=== PATIENT | male | born 1960 | race Caucasian/White ===

== ENCOUNTER 2024-03-05 14:15 | Outpatient (AMB) | payer MEDICARE, SELFPAY ==
--- NOTE | 2024-03-05 14:27 | MHC.OFFVIS ---
Vital Signs 03/05/24 14:30 Height 5 ft 10 in Weight 247 lb BMI 35.4 BP 131/76 Blood Pressure Location Rt brachial Position Sitting Pulse 76 Pulse Source Pulse Oximeter Pulse Oximetry (%) 97 Oxygen Delivery Method Room Air Intake Visit Reasons: Bilateral Hip & Knee Pain Allergies No Known Allergies Allergy (Verified 03/05/24 14:32) Medication List - Last Reconciled 03/05/24 by Trina Mathur amlodipine 5 mg PO DAILY evolocumab (Repatha Pushtronex) mg subcut omeprazole magnesium (Prilosec OTC) 20 mg PO DAILY HPI Comments Details: Mina is a very pleasant 63-year-old male who presents the office today for evaluation management of his chronic left hip and left knee pain. Today he would like to focus on his left knee pain as this has been the most bothersome recently Has been suffering with this pain since he was 15 years old. 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 Occasionally they will cause him to have some aching pain when they swell. Denies radiation of the pain down the extremity. Denies numbness, tingling, weakness. In terms muscle damage condition is described as aching, dull, throbbing, tingling, pins and needles Pain is negatively impacting patient's enjoyment of life, general activity, mood, normal work, recreational activities, sleep, walking Patient denies current use of anticoagulants Denies current use of nicotine, tobacco, alcohol or illicit substances Denies implantable devices, pacemaker or defibrillator [facility] Medical History (Updated 03/05/24 @ 16:28 by Mitali Bates APRN, RITO) High blood pressure High cholesterol GERD (gastroesophageal reflux disease) Surgical History (Updated 03/05/24 @ 16:19 by Mitali Bates APRN, RITO) Status post right knee replacement History of right hip replacement Review of Systems Const All systems reviewed & are unremarkable except as noted in HPI and below Physical Exam Vital Signs: Last Vital Signs Pulse 76 03/05/24 14:30 BP 131/76 03/05/24 14:30 Pulse Ox 97 03/05/24 14:30 Oxygen Delivery Method Room Air 03/05/24 14:30 BMI result Body Mass Index 35.4 General: awake, alert, oriented. Answers questions appropriately. Fully engaged in examination. Skin: warm, dry, intact HEENT: Normocephalic. Hearing intact. Cardiac: External chest normal in appearance. Respiratory: No cough, audible wheezing or stridor. Abdomen: without gross distension. MS: No obvious swelling or deformities. Able to stand on bilateral tiptoes and bilateral heels.? Able to transition from sit to stand unassisted. Ambulates with bilaterally normal heel strike and toe off Pain with internal/external rotation of the left hip Left knee: Tenderness to palpation just distal to the patella. Full range of motion Neurological: Oriented to person, place, time and situation. Thought process intact. No gait abnormalities appreciated. Psychiatric: Appropriate mood and affect. Good judgment and insight. Results Reviewed Results Reviewed: Recent left knee x-ray: mild OA Assessment & Plan Assessment & Plan (1) Osteoarthritis: Code(s): M19.90 - Unspecified osteoarthritis, unspecified site Category: Medical (2) Bilateral hip pain: Code(s): M25.551 - Pain in right hip; M25.552 - Pain in left hip Category: Medical (3) Right knee pain: Code(s): M25.561 - Pain in right knee Category: Medical (4) Left knee pain: Code(s): M25.562 - Pain in left knee Category: Medical (5) Varicose veins of both lower extremities: Code(s): I83.93 - Asymptomatic varicose veins of bilateral lower extremities Category: Medical Plan Mina is a very pleasant 63-year-old presented the office today for evaluation management of his left hip and knee pain Requesting to focus on left knee pain today Patient has exhausted conservative therapy including PT, home exercise program, nonsteroidal anti-inflammatory medications, rest ice, elevate Discussed options for treatment including diagnostic interventional testing, epidural steroid injections, peripheral nerve stimulation with Sprint, RFA and more permanent neuromodulation. Methocarbamol 500 mg p.o. t.i.d., patient advised on cautions for use Amitriptyline 10 mg daily at bedtime, after one-week may increase to 20 mg daily at bedtime. Referral was placed to vascular surgery to evaluate and manage his bilateral lower extremity varicose veins All questions and concerns have been answered and patient agrees with the plan. Follow up after injections, sooner if needed. Orders: Referrals Vascular Surgery Referral I83.93 - Asymptomatic varicose veins of bilateral lower extremities Medications: New methocarbamol No driving while taking this medication. 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
[2024-03-05 14:30] VITALS: BP 131/76; PULSE 76; O2SAT 97; BMI 35.4
== END 2024-03-05 15:23 | disposition home or self-care (01) ==
PROVIDERS: PCP Internal Medicine; Visit Provider Registered Nurse Emergency
DX: M19.90 Unspecified osteoarthritis, unspecified site (principal); M25.551 Pain in right hip; M25.552 Pain in left hip; M25.561 Pain in right knee; M25.562 Pain in left knee; I83.93 Asymptomatic varicose veins of bilateral lower extremities
CPT/HCPCS: 99204; G2211

== ENCOUNTER → 2024-03-05 14:15 | Outpatient (BNVA) | payer MEDICARE, SELFPAY | PROVIDERS: PCP Internal Medicine; Visit Provider Registered Nurse Emergency | DX: M19.90 Unspecified osteoarthritis, unspecified site (principal); M25.551 Pain in right hip; M25.552 Pain in left hip; M25.561 Pain in right knee; M25.562 Pain in left knee; I83.93 Asymptomatic varicose veins of bilateral lower extremities | CPT/HCPCS: 99202 ==

== ENCOUNTER 2024-04-25 09:14 | Outpatient (AMB) | payer MEDICARE, SELFPAY ==
[2024-04-25 09:17] VITALS: BMI 35.4
--- NOTE | 2024-04-25 09:17 | MHC.OFFVIS ---
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 Does have rope like VV on left pretibial area that are causing burning. 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 States he does exercise daily. 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 He states the total length of time he has had them is approximately 6 years but the last year they have become more painful and his legs appear more heavy and tired. He states the pain worsens with rest after he walks. 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 He has not tried any conservative measures yet. He is a former smoker, social, and quit years ago. He is a nondiabetic. [facility] Medical History High blood pressure High cholesterol GERD (gastroesophageal reflux disease) Surgical History Status post right knee replacement History of right hip replacement Review of Systems Const Reports as per HPI and Denies weakness ENT Reports Normal hearing present and Denies dizziness Card Reports as per HPI, Denies chest pain, Denies chest pain at rest, Denies chest pain with activity, Denies dyspnea and Denies dyspnea on exertion Resp Reports as per HPI, Denies cough, Denies dyspnea and Denies dyspnea on exertion GI Reports as per HPI, Denies abdominal pain, Denies nausea and Denies vomiting Musc Denies numbness Skin/Breast Reports as per HPI, Denies erythema and Denies wounds Neuro Reports Normal hearing present, Denies dizziness, Denies numbness, Denies Sensory deficit (Neuro) and Denies weakness Psych Reports no additional complaints Endo Reports no additional complaints Physical Exam Vital Signs: BMI result Body Mass Index 35.4 Const General: healthy appearing and no acute distress Orientation/consciousness: patient oriented x3 HEENT Head: Yes normal to inspection Ears: hearing grossly normal bilaterally Mouth: Normal oral and palatal mucosa present Resp Effort & Inspection: normal respiratory effort and able to speak in complete sentences Auscultation: clear to auscultation bilaterally Cardio Jugular venous distension: no JVD Rate: regular rate Rhythm: regular rhythm Heart sounds: S1 normal heart sound present and S2 normal heart sound present Bruits: no abdominal aortic bruits, no carotid bruits, no femoral bruits and no renal bruits Peripheral pulses: Peripheral pulses 2+ throughout GI Inspection: Yes normal to inspection Palpation (GI): No Abdominal aortic bruit present Skin Other: Left lower extremity: Several larger tortuosity is noted below the knee medially, proximally 4-6 cm in length. There are a few others on the lateral side approximately 3-4 cm in length. Strong and palpable DP and PT pulses. Slight discoloration noted from mid campos to ankles Right lower extremity: A couple medium-sized tortuosity is noted [id number] medially. Strong and palpable DP and PT pulses. CEAP: C - 4 E - primary A - superficial P - reflux General skin exam: no rashes or lesions noted Wounds: no wounds Hair: normal Neuro General: patient oriented x3 Cranial nerves: Yes Normal hearing present Cognition (Neuro): normal cognition Gait exam (Neuro): Normal gait present Motor exam (neuro): 5/5 motor strength present throughout Sensory Exam: No Sensory deficit (Neuro) Extrem General: Yes normal to inspection, Yes full ROM, Yes capillary refill normal and Yes normal gait Assessment & Plan Assessment & Plan (1) Varicose veins of both lower extremities with inflammation: Code(s): I83.11 - Varicose veins of right lower extremity with inflammation; I83.12 - Varicose veins of left lower extremity with inflammation Category: Medical Plan: Mina is presenting today on referral from pain management for ongoing bilateral lower extremity varicose veins. He states the pain in heaviness has increased over the past year as well as the bulging of the varicose veins. In short, the patient has evidence of venous insufficiency. I have discussed the pathophysiology with the patient. In addition I have provided informational material regarding venous disease to the patient. We have discussed conservative measures including compression, elevation, and exercise. I have also provided a handout regarding appropriate use of compression stockings and where to purchase good compression stockings as well. I have taken the liberty of ordering venous insufficiency testing with the patient. They will follow up with me after testing. The patient had an opportunity to ask questions regarding the treatment plan. All questions were answered. We discussed possible treatment plans, depending on the results of the venous insufficiency ultrasound. No major barriers to understanding were identified. The patient expressed understanding and agreement with the above treatment plan. The patient is aware they should contact our office by phone for worsening of the current condition or the appearance of new symptoms. Thank you for allowing me to participate in the vascular care of this patient. If you have any questions or concerns regarding the treatment for the above condition please do not hesitate to contact me. The office telephone contact is [phone]. This note is constructed using voice recognition software. While every effort has been made to ensure accuracy, bartender helper errors may have been included. Thank you for allowing me to participate in the care of your patient. Yours sincerely, DELISA Brothers Coding Level of Care Code New Pt New Pt Level 4 (00285) Patient Type New Diagnoses Varicose veins of both lower extremities with inflammation I83.11; I83.12 Comment pt education, PE
== END 2024-04-25 09:33 | disposition home or self-care (01) ==
PROVIDERS: PCP Internal Medicine; Visit Provider Physician Assistant Surgical
DX: I83.11 Varicose veins of right lower extremity with inflammation (principal); I83.12 Varicose veins of left lower extremity with inflammation
CPT/HCPCS: 99204; 99214

== ENCOUNTER → 2024-04-25 09:14 | Outpatient (BNVA) | payer MEDICARE, SELFPAY | PROVIDERS: PCP Internal Medicine; Visit Provider Physician Assistant Surgical | DX: I83.11 Varicose veins of right lower extremity with inflammation (principal); I83.12 Varicose veins of left lower extremity with inflammation | CPT/HCPCS: 99202 ==

== ENCOUNTER 2024-05-09 08:15 | Outpatient (REF) | payer MEDICARE, SELFPAY ==
--- NOTE | ~2024-05-09 | US_ITS ---
EXAMINATION: US LOWER EXTREMITY VENOUS (REFLUX EXAM), BILATERAL CLINICAL INDICATION: Chronic venous insufficiency with lower extremity varicose veins COMPARISON: None. TECHNIQUE: Color flow triplex imaging and compression Doppler was performed to evaluate both the deep and the superficial systems bilaterally. To evaluate the superficial system, the examination was performed in the upright position. Color-flow Doppler ultrasound and compression ultrasound were utilized. In addition, maneuvers were utilized to demonstrate reflux. FINDINGS: 1. DEEP VENOUS ULTRASOUND OF THE RIGHT LOWER EXTREMITY: Common Femoral Vein: Compressible, normal respiratory variation and augmented flow. Femoral Vein: Compressible, normal color flow and augmentation. Popliteal Vein: Compressible, normal augmentation. Deep Reflux: There is no evidence of reflux in the deep system in either the common femoral vein, superficial femoral or the popliteal vein. There is no evidence of a Chowdhury's cyst. 2. SUPERFICIAL ULTRASOUND WITH DOPPLER OF RIGHT LOWER EXTREMITY: GREAT SAPHENOUS VEIN: Saphenofemoral Junction: 0.8 cm; Reflux: 0 ms Proximal Thigh: 0.6 cm; Reflux: 0 ms Mid Thigh: 0.3 cm; Reflux: 0 ms Above Knee: 0.3 cm; Reflux: 0 ms At Knee: 0.2 cm; Reflux: 0 ms Below Knee: 0.3 cm; Reflux: 0 ms Mid Calf: 0.2 cm; Reflux: 0 ms Ankle: 0.3 cm; Reflux: 864 ms DUPLICATED MEDIAL GREAT SAPHENOUS VEIN: Diameter: 0.3 cm Reflux: None DUPLICATED LATERAL GREAT SAPHENOUS VEIN: Diameter: None imaged Reflux: NA SMALL SAPHENOUS VEIN: Saphenopopliteal Junction: 0.2 cm; Reflux: 0 ms Mid: 0.3 cm; Reflux: 0 ms Distal: 0.2 cm; Reflux: 0 ms VEIN OF GIACOMINI: Size: NA Reflux: NA PERFORATORS: Location: Medial mid calf Size: 0.3 cm Reflux: 2560 VARICOSITIES: Location: Distal thigh Size: 0.3 cm Reflux: None 3. DEEP VENOUS ULTRASOUND OF THE LEFT LOWER EXTREMITY: Common Femoral Vein: Compressible, normal respiratory variation and augmented flow. Femoral Vein: Compressible, normal color flow and augmentation. Popliteal Vein: Compressible, normal augmentation. Deep Reflux: There is no evidence of reflux in the deep system in either the common femoral vein, superficial femoral or the popliteal vein. There is no evidence of a Chowdhury's cyst. 4. SUPERFICIAL ULTRASOUND WITH DOPPLER OF LEFT LOWER EXTREMITY: GREAT SAPHENOUS VEIN: Saphenofemoral Junction: 0.8 cm; Reflux: 0 ms Proximal Thigh: 0.7 cm; Reflux: 0 ms Mid Thigh: 0.4 cm; Reflux: 3172 ms Above Knee: 0.5 cm; Reflux: 2448 ms At Knee: 0.5 cm; Reflux: 3232 ms Below Knee: 0.4 cm; Reflux: 616 ms Mid Calf: 0.2 cm; Reflux: 0 ms Ankle: 0.2 cm; Reflux: 0 ms DUPLICATED MEDIAL GREAT SAPHENOUS VEIN: Diameter: None imaged Reflux: NA DUPLICATED LATERAL GREAT SAPHENOUS VEIN: Diameter: 0.3 cm Reflux: None SMALL SAPHENOUS VEIN: Saphenopopliteal Junction: 0.2 cm; Reflux: 0 ms Proximal: 0.2 cm; Reflux: 0 ms Distal: 0.2 cm; Reflux: 0 ms VEIN OF GIACOMINI: Size: NA Reflux: NA PERFORATORS: Location: None significant Size: NA Reflux: NA VARICOSITIES: Location: Proximal thigh and mid calf/campos Size: 0.3 cm Reflux: None US/US venous duplex LE BI IMPRESSION: 1. Right: Focal reflux in the great saphenous vein at the ankle. 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 Small varicose vein in the distal thigh. 2. Left: Significant reflux in the great saphenous vein in the mid thigh, above knee and below knee. Small varicose veins in the proximal thigh and mid calf/campos. Electronically signed by: Jase Mcclelland MD 06/03/2024 03:08 PM [facility]
== END 2024-05-09 08:16 | disposition home or self-care (01) ==
LOC: HO.US 08:15
PROVIDERS: PCP Internal Medicine; Visit Provider Physician Assistant Surgical
DX: I83.11 Varicose veins of right lower extremity with inflammation (principal); I83.12 Varicose veins of left lower extremity with inflammation
CPT/HCPCS: 93970

== ENCOUNTER 2024-05-21 09:11 | Outpatient (AMB) | payer MEDICARE, SELFPAY ==
--- NOTE | 2024-05-21 09:14 | A.OFFVIS_ITS ---
Intake Visit Reasons: follow up s/p US 05/09/24 Intake Note: Patient presents for US follow up . No complaints. Accompanied by: Self / Same As Patient Allergies No Known Allergies Allergy (Verified 05/21/24 09:15) HPI HPI follow up s/p US 05/09/24: Details: Mina is presenting today as a follow-up to his venous insufficiency ultrasound, performed on 05/09. He states he continues with lower extremity cramping and heaviness, left more than right. He states he does know he has some arthritis in his knees and hips but this pain is different. He states the pain is worse after resting. He has no new complaints this morning. ON LICENSE OF [facility] Medical History High blood pressure High cholesterol GERD (gastroesophageal reflux disease) Surgical History Status post right knee replacement History of right hip replacement Review of Systems Const Reports as per HPI and Denies weakness ENT Reports Normal hearing present and Denies dizziness Card Reports as per HPI, Denies chest pain, Denies chest pain at rest, Denies chest pain with activity, Denies dyspnea and Denies dyspnea on exertion Resp Reports as per HPI, Denies cough, Denies dyspnea and Denies dyspnea on exertion GI Reports as per HPI, Denies abdominal pain, Denies nausea and Denies vomiting Musc Denies numbness Skin/Breast Reports as per HPI, Denies erythema and Denies wounds Neuro Reports Normal hearing present, Denies dizziness, Denies numbness, Denies Sensory deficit (Neuro) and Denies weakness Psych Reports no additional complaints Endo Reports no additional complaints Physical Exam Const General: healthy appearing and no acute distress Orientation/consciousness: patient oriented x3 HEENT Head: Yes normal to inspection Ears: hearing grossly normal bilaterally Mouth: Normal oral and palatal mucosa present Resp Effort & Inspection: normal respiratory effort and able to speak in complete sentences Auscultation: clear to auscultation bilaterally Cardio Jugular venous distension: no JVD Rate: regular rate Rhythm: regular rhythm Heart sounds: S1 normal heart sound present and S2 normal heart sound present Bruits: no abdominal aortic bruits, no carotid bruits, no femoral bruits and no renal bruits Peripheral pulses: Peripheral pulses 2+ throughout GI Inspection: Yes normal to inspection Palpation (GI): No Abdominal aortic bruit present Skin General skin exam: no rashes or lesions noted Wounds: no wounds Hair: normal Neuro General: patient oriented x3 Cranial nerves: Yes Normal hearing present Cognition (Neuro): normal cognition Gait exam (Neuro): Normal gait present Motor exam (neuro): 5/5 motor strength present throughout Sensory Exam: No Sensory deficit (Neuro) Extrem Other: Left lower extremity: Several larger tortuosity is noted below the knee medially, proximally 4-6 cm in length. There are a few others on the lateral side approximately 3-4 cm in length. Strong and palpable DP and PT pulses. Slight discoloration noted from mid campos to ankles Right lower extremity: A couple medium-sized tortuosity is noted [id number] medially. Strong and palpable DP and PT pulses. General: Yes normal to inspection, Yes full ROM, Yes capillary refill normal and Yes normal gait Results Reviewed Results Reviewed: Brief summary of venous insufficiency testing is as follows: right great saphenous vein: negative right small saphenous vein: negative right accessory vein: none present left great saphenous vein: positive left small saphenous vein: negative left accessory vein: none present Please note there is no evidence of any venous aneurysms or significant tortuosity Assessment & Plan Assessment & Plan (1) Varicose veins of both lower extremities with inflammation: Code(s): I83.11 - Varicose veins of right lower extremity with inflammation; I83.12 - Varicose veins of left lower extremity with inflammation Category: Medical Plan: Mina is presenting today as a follow up to venous insufficiency US, performed on 05/09. It revealed venous insufficiency in the left GSV. This patient has varicose veins with inflammation. They continue to be a source of discomfort for the patient. The patient has tried conservative treatment with compression, leg elevation and exercise program for over 3 months time. They have been compliant with all treatment. This has provided minimal relief for the patient. I do not anticipate this course of treatment will alter the underlying etiology. The patient has been scheduled for lower extremity venous treatment inclusive of left great saphenous vein Venaseal. Risks, benefits, and complications of this procedure has been discussed in detail with the patient including but not limited to bleeding, infection, and the development of a DVT. The patient has demonstrated a clear understanding and has consented. We will schedule the patient as soon as possible. Thank you for allowing us to participate in this patient's care. If there are any questions or concerns please do not hesitate to contact us. Coding Level of Care Code Est Pt Level 4 (57964) Diagnoses Varicose veins of both lower extremities with inflammation I83.11; I83.12 Comment review of venous insufficiency US
== END 2024-05-21 09:37 | disposition home or self-care (01) ==
PROVIDERS: PCP Internal Medicine; Visit Provider Physician Assistant Surgical
DX: I83.11 Varicose veins of right lower extremity with inflammation (principal); I83.12 Varicose veins of left lower extremity with inflammation
CPT/HCPCS: 99214

== ENCOUNTER → 2024-05-21 09:11 | Outpatient (BNVA) | payer MEDICARE, SELFPAY | PROVIDERS: PCP Internal Medicine; Visit Provider Physician Assistant Surgical | DX: I83.11 Varicose veins of right lower extremity with inflammation (principal); I83.12 Varicose veins of left lower extremity with inflammation | CPT/HCPCS: 99212 ==

== ENCOUNTER 2024-07-19 08:11 | Outpatient (AMB) | payer MEDICARE, SELFPAY ==
--- NOTE | 2024-07-19 08:39 | A.OFFVIS_ITS ---
Vital Signs 07/19/24 08:40 Height 5 ft 10 in Weight 247 lb BMI 35.4 Intake Visit Reasons: Right GSV Venaseal Allergies No Known Allergies Allergy (Verified 07/19/24 08:40) [facility] Medical History High blood pressure High cholesterol GERD (gastroesophageal reflux disease) Surgical History Status post right knee replacement History of right hip replacement Physical Exam Vital Signs: BMI result Body Mass Index 35.4 Office Procedures Vascular Office Procedure Details Details: Diagnosis: Right Leg varicose veins with inflammation Procedure: Endovenous Ablation of the right Great Saphenous Vein with VenaSeal Closure System Anesthesia: Local infiltration 5 cc, 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 The depth and diameter of the vein(s) to be treated was documented. The patient was placed supine on the procedure table and the leg was prepped and draped using sterile technique. Ultasound guidance was again used to localize the access site. 1% lidocaine was injected as a local anesthetic in the subcutaneous tissues at the target location in the GSV in the lower leg. Using ultrasound guidance, access was gained at this location with the 19 gauge thin walled access needle and followed by introduction of a short guidewire, location confirmed with ultrasound. A small, 3 mm incision was made at the access site to allow for introduction and placement of the 7 Fr x7cm introducer/dilator. The dilator and guidewire were removed. The 0.035 guidewire from the VenaSeal kit was then introduced and positioned at the saphenofemoral junction using ultrasound guidance. The 80 cm 7 Fr introducer sheath/dilator was positioned 5cm from the saphenofemoral junction. The guidewire and dilator were removed, and the remaining sheath was flushed with sterile saline, with the syringe remaining in place prior to the next steps. The cyanoacrylate adhesive was precisely primed into the 5 F delivery catheter and this catheter/syringe combination was attached within the dispenser gun. This assembly was introduced through the 7F sheath and positioned 5 cm caudal of the saphenofemoral junction under ultrasound guidance. The steps from the IFU were followed for dispensing amounts, locations and compression times, 2 aliquots proximally with 3 minutes of compression, and 1 aliquot every 3 cm distally with 30 sec of compression along the course of the vessel. Following the last injection and compression sequence, the catheter and introducer sheath were pulled out from the access site. Hemostasis was achieved with manual compression and an adhesive bandage was applied to the incision. Ultrasound confirmed complete coaptation and closure of the treated segments of the GSV, and the absence of any DVT at the saphenofemoral junction. Treatment time was approximately 7 minutes and the vein length treated was 39 cm. The drapes were removed and the patient cleaned and prepared for discharge. Post op ultrasound check is scheduled for 48-72 hours and the patient was given written post-op instructions. 74376 - Endoven Ther Chem Adhes 1st All charges added?: Procedure code (CPT) selection complete Assessment & Plan Assessment & Plan (1) Varicose veins of right lower extremity with inflammation: Comment: 07/19/2024 - right great saphenous vein Cyanoacralate ablation Code(s): I83.11 - Varicose veins of right lower extremity with inflammation Category: Medical Plan: See op note Coding Level of Care Code Procedure Only Diagnoses Varicose veins of right lower extremity with inflammation I83.11 CPT Codes Details - Vascular 3: 68910 - Endoven Ther Chem Adhes 1st ([id number])
[2024-07-19 08:40] VITALS: BMI 35.4
== END 2024-07-19 10:35 | disposition home or self-care (01) ==
PROVIDERS: PCP Internal Medicine; Visit Provider Surgery Vascular Surgery
DX: I83.11 Varicose veins of right lower extremity with inflammation (principal)
CPT/HCPCS: 36482

== ENCOUNTER → 2024-07-19 08:11 | Outpatient (BNVA) | payer MEDICARE, SELFPAY | PROVIDERS: PCP Internal Medicine; Visit Provider Surgery Vascular Surgery | DX: I83.11 Varicose veins of right lower extremity with inflammation (principal) | CPT/HCPCS: 36482; J2003 ==

== ENCOUNTER 2024-08-01 08:43 | Outpatient (AMB) | payer MEDICARE, SELFPAY ==
--- NOTE | 2024-08-01 08:56 | MHC.OFFVIS ---
Intake Visit Reasons: 2 week follow up s/p Right GSV Venaseal Intake Note: Patient presents for follow up right gsv venaseal no complaints. Accompanied by: Self / Same As Patient Allergies No Known Allergies Allergy (Verified 08/01/24 08:58) HPI HPI 2 week follow up s/p Right GSV Venaseal: Details: Mina is presenting today for a follow up s/p left GSV Venaseal, performed 07/19/24. He states he has been doing very well and he feels like his leg is experienced less pain and discomfort. He states he has been having some itching at the incision site. He denies any redness or swelling. He states overall he feels much better. [facility] Medical History High blood pressure High cholesterol GERD (gastroesophageal reflux disease) Surgical History Status post right knee replacement History of right hip replacement Review of Systems Const Reports as per HPI and Denies weakness ENT Reports Normal hearing present and Denies dizziness Card Reports as per HPI, Denies chest pain, Denies chest pain at rest, Denies chest pain with activity, Denies dyspnea and Denies dyspnea on exertion Resp Reports as per HPI, Denies cough, Denies dyspnea and Denies dyspnea on exertion GI Reports as per HPI, Denies abdominal pain, Denies nausea and Denies vomiting Musc Denies numbness Skin/Breast Reports as per HPI, Denies erythema and Denies wounds Neuro Reports Normal hearing present, Denies dizziness, Denies numbness, Denies Sensory deficit (Neuro) and Denies weakness Psych Reports no additional complaints Endo Reports no additional complaints Physical Exam Const General: healthy appearing and no acute distress Orientation/consciousness: patient oriented x3 HEENT Head: Yes normal to inspection Ears: hearing grossly normal bilaterally Mouth: Normal oral and palatal mucosa present Resp Effort & Inspection: normal respiratory effort and able to speak in complete sentences Auscultation: clear to auscultation bilaterally Cardio Jugular venous distension: no JVD Rate: regular rate Rhythm: regular rhythm Heart sounds: S1 normal heart sound present and S2 normal heart sound present Bruits: no abdominal aortic bruits, no carotid bruits, no femoral bruits and no renal bruits Peripheral pulses: Peripheral pulses 2+ throughout GI Inspection: Yes normal to inspection Palpation (GI): No Abdominal aortic bruit present Skin General skin exam: no rashes or lesions noted Wounds: no wounds Hair: normal Neuro General: patient oriented x3 Cranial nerves: Yes Normal hearing present Cognition (Neuro): normal cognition Gait exam (Neuro): Normal gait present Motor exam (neuro): 5/5 motor strength present throughout Sensory Exam: No Sensory deficit (Neuro) Extrem Other: Left lower extremity: No edema noted. No erythema or swelling at the site of the incision for the Venaseal. General: Yes normal to inspection, Yes full ROM, Yes capillary refill normal and Yes normal gait Assessment & Plan Assessment & Plan (1) Varicose veins of right lower extremity with inflammation: Comment: 07/19/2024 - right great saphenous vein Cyanoacralate ablation Code(s): I83.11 - Varicose veins of right lower extremity with inflammation Category: Medical Plan: Mina is presenting today status post 2 week follow up from a left GSV Venaseal. He states he has experienced a little bit of itching at the incision site but no pain, redness, or edema. He states overall he feels much better. We discussed continuing with compression stockings, physical activity, and elevation. We discussed that if he has any other concerns or if anything changes, to reach out to our office. Thank you for allowing us to participate in the patient's care. If there are any questions or concerns, please do not hesitate to reach out to us. Coding Level of Care Code Est Pt Level 4 (24973) Diagnoses Varicose veins of right lower extremity with inflammation I83.11
--- OUTSIDE RECORDS SUMMARY | 2024-08-01 11:29 | XMS_ITS | Data Portability ---
Author Organization [place] - [facility], OFFICE Address [address] [facility], [address] [address] Assessment Encounter Date Assessment Date Assessment LastModified by Organization Details LastModified Time 10/26/2016 10/26/2016 Mina is functioning well after elective THR and TKR. His left hip has modest OA but it tolerable at the moment. He's going to continue all reasonable activities as tolerated. [email or web address] Not available 10/26/2016 13:53:56 10/31/2018 10/31/2018 Mr. Bourgeois continues to function well following RTHR and RTKR. He's going to continue all reasonable activities as tolerated. sbm Not available 10/31/2018 14:31:35 Plan of Treatment Reminders Order Date Submit Date Provider Last Modified By Organization Details Last Modified Time Details Appointments None record ed. Lab None record ed. Referral None record ed. Procedures None record ed. Surgeries None record ed. Imaging None record ed. Medication Orders None record ed. Patient TargetsNo targets recorded. Patient Instructions Encounter Date Encounter Id Patient Instructions Last Modified By Organization Details Last Modified Time 10/26/2016 [id number] arthritis: care instructions ASHUTOSH Not available 10/28/2016 12:23:07 osteoarthritis: care instructions ASHUTOSH Not available 10/28/2016 12:23:12 Reason for Referral None Reported. Problems Name Problem SNOMED Code Status Onset Date Resolution Date Notes Provider Name and Address Organization Details Recorded Time Localized, primary osteoarthriti s of the pelvic region and thigh 341072258 Active Not Available [facility] 4 03:31:08 Osteoarthriti s 040449528 Active Not Available [facility] 4 03:31:08 Problem Notes None recorded. Procedures Surgical History Date Name Laterality Status Provider Name and Address Organization Details Recorded Time 07/14/19 12 Total hip arthroplasty completed Munir Prince MD [address], [place], [address], [place] - [facility] 10/26/2016 13:51:21 08/21/19 09 Total knee arthroplasty completed Munir Prince MD [address], [place], [address], [place] - [facility] 10/31/2018 14:30:24 Shoulder Surgery completed Munir Prince MD [address], [place], [address], [place] - [facility] 10/26/2016 13:51:13 repair of musculotendinous cuff of shoulder completed Munir Prince MD [address], [place], [address], [place] - [facility] 10/31/2018 14:30:17 Imaging Results None recorded. Procedure Notes None recorded. Medical Equipment None Reported. Allergies No known drug allergies Medications Name Sig Start Date Stop Date Status Note LastModified by Organization Details LastModified Time amoxicillin 500 mg capsule Take 4 capsule(s) 1hr prior to dental work active Not Available Not Available No t Available ofloxacin 0.3 % eye drops active Not Available Not Available Not Available penicillin V potassium 500 mg tablet active Not Available Not Available Not Available amoxicillin 500 mg tablet take 4 tablets by mouth 1 hour PRIOR TO DENTAL PROCEDURES DIRECTED 2015 active Not Available Not Available Not Avai lable oxycodone-ac etaminophen 5 mg-325 mg tablet active Not Available Not Available Not Available amoxicillin 875 mg tablet active Not Available Not Available Not Available methocarbamo l 750 mg tablet active Not Available Not Available Not Available benzonatate 100 mg capsule active Not Available Not Available Not Available erythromycin 5 mg/gram (0.5 %) eye ointment active Not Available Not Available Not Available methylpredni solone 4 mg tablets in a dose pack active Not Available Not Available No t Available naproxen 500 mg tablet active Not Available Not Available No t Available ezetimibe 10 mg tablet active Not Available Not Available No t Available rosuvastatin 40 mg tablet active Not Available Not Available Not Available peg 3350 240 gram-electro lytes 22.72 gram-6.72 g-5.84 g powdr for soln active Not Available Not Available Not Available Flucelvax Quad 8609-5067 (PF) 60 mcg (15 mcg x 4)/0.5 mL IM syringe active Not Available Not Available Not Available Vitals Date Recorded Body height Body weight Body mass index (BMI) Provider Name and Address Organization Details Last Updated DateTime 10/26/2016 180.34 cm 76014.54 g 30.3 kg/m2 Shirlene Cruz [place] - [facility] 10/26/2016 11:11:30 Date Recorded Systolic blood pressure Diastolic blood pressure Provider Name and Address Organization Details Last Updated DateTime 10/26/2016 114 mm[Hg] 70 mm[Hg] Munir Prince MD [address] [place] [address], [address], [place] - [facility] 10/26/2016 13:28:05 Date Recorded Body height Body mass index (BMI) Body weight Systolic blood pressure Diastolic blood pressure Provider Name and Address Organization Details Last Updated DateTime 10/31/2018 180.34 cm 29 kg/m2 15962.21 g 125 mm[Hg] 83 mm[Hg] Shirlene Cruz [place] - [facility] 9 13:31:21 Date Recorded Body height Body mass index (BMI) Body weight Provider Name and Address Organization Details Last Updated DateTime 02/14/2023 180.34 cm 32.5 kg/m2 086333.02 g Shirlene Cruz [place] - [facility] 02/14/2023 09:52:52 Social History Question Answer Notes LastModified by Organizat ion Details LastModified Time Tobacco Smoking Status Former Smoker Not Available [facility] 05/05/2020 03:15:24 Do You Have An Advance Directive? No [email or web address] Information not available 02/14/2023 Do You Have A Medical Power Of Supervisor Inspection And Testing? No [email or web address] Information not available 02/14/2023 What Was The Date Of Your Most Recent Tobacco Screening? 02/14/2023 Information not available 02/14/2023 Has Tobacco Cessation Counseling Been Provided? No [email or web address] Information not available 02/14/2023 Do You Or Have You Ever Used Any Other Forms Of Tobacco Or Nicotine? No [email or web address] Information not available 02/14/2023 Sex: Unknown Functional Status Question Answer Note LastModified by Organization D etails LastModified Time Are you able to care for yourself? Yes Information n ot available 02/14/2023 Mental Status None recorded. Family History Nothing Reported. Medical History Condition Response Heart Problems N Coronary Artery Disease N Gout N Anxiety/Depression N Blood Transfusion N Hernia N Migraines N Thyroid Problems N COPD N Pacemaker N Anemia N Heart Attack (NE) N Ulcers N Diabetes N Bleeding Disorder N Orthotics N Arthritis N Seizures/Epilepsy N Blood Clot N Tuberculosis N AIDS/HIV N Cancer N Stroke N Asthma N Peripheral Vascular Disease N High Cholesterol Y Hepatitis N Liver Disease N Rheumatoid Arthritis N Pulmonary Embolism N Hypertension N Osteoporosis N Kidney Disease N Past Encounters Encounter ID Performer Location Encounter Start Date Encounter Closed Date Diagnosis/Indication Diagnosis SNOMED-CT Code Diagnosis ICD10 Code Diagnosis Note [id number] [address] [address] 02/21/2007 12:54:49 02/21/2007 14:28:56 Osteoarthritis [id number] [address] [address] 02/18/2008 11:32:35 02/18/2008 13:55:09 Osteoarthritis [id number] [facility] INPT [address] [place] [address] 08/21/2008 00:05:00 08/21/2008 00:05:00 Osteoarthritis [id number] [address] [address] 10/01/2008 11:29:03 10/01/2008 13:57:41 Osteoarthritis [id number] OFFICE [address] [address] 11/26/2008 13:09:09 11/26/2008 14:44:55 Osteoarthritis [id number] OFFICE [address] [address] 11/16/2009 11:52:00 11/16/2009 13:16:26 Osteoarthritis [id number] OFFICE [address], [address] [address] 04/04/2011 08:56:40 04/04/2011 09:09:44 Localized, primary osteoarthritis of the pelvic region and thigh [id number] [facility] INPT [address] [place] [address] 07/14/2011 00:04:29 07/14/2011 00:04:29 Localized, primary osteoarthritis of the pelvic region and thigh [id number] OFF[address] [address] 08/31/2011 08:56:15 08/31/2011 09:42:20 Localized, primary osteoarthritis of the pelvic region and thigh [id number] OFF[address] [address] 10/21/2013 12:01:45 10/21/2013 12:59:46 Localized, primary osteoarthritis of the pelvic region and thigh [id number] Munir Prince MD OFFICE [address] [address] 10/26/2016 11:02:47 10/27/2016 11:28:53 Osteoarthritis 063443722 M19.90 [id number] Munir Prince MD OFFICE [address] [address] 10/31/2018 10:57:22 11/02/2018 14:11:35 Health Concerns Section Related Observation LastModified by Organization Detai ls LastModified Time None Recorded Concern Status LastModified by Organization Details LastModified Time None Recorded Advance Directives Directive N: Payers Encounter Date Sequence Insurance Name Policy Number Policy Reyes Covered Member ID Reyes Member ID Guarantor Name 08/31/2011 1 [place] [id number] Mina Bourgeois Jr [id number] Mina Bourgeois 10/21/2013 1 [place] [id number] Mina Bourgeois Jr [id number] Mnia Bourgeois 10/26/2016 1 [place] [id number] Mina Bourgeois Jr [id number] Mina Bourgeois 10/31/2018 1 [place] [employer] [facility] (POS) [id number] Mina Bourgeois [id number] Mina Bourgeois Notes Date Note Type Note Provider Name and Address Organization Details Recorded Time 10/26/2016 text/html Hip(s) [facility] Mr. Bourgeois is doing well following LTHR and LTKR. He doesn't have pain or limitations. Severity:no pain Aggravating Factors:cannot identify Associated Symptoms:no weakness; no numbness; no tingling; no swelling; no redness; no warmth; no ecchymosis; no catching/locking; no popping/clicking; no buckling; no grinding; no instability; no radiation down leg; no drainage; no fever; no chills; no weight loss; no change in bowel/bladder habits Prior Imaging:x ray; CT scan Previous PT:helped significantly Munir Prince MD [address],[place] [address], [place], [address], [place] - [facility] 10/26/2016 19:59:38 10/31/2018 text/html Hip(s) [facility]patient.[facility] Mr. Bourgeois is doing well following LTHR and LTKR. He continues to have an absence of pain or limitations. Severity:no pain Aggravating Factors:cannot identify Associated Symptoms:no weakness; no numbness; no tingling; no swelling; no redness; no warmth; no ecchymosis; no catching/locking; no popping/clicking; no buckling; no grinding; no instability; no radiation down leg; no drainage; no fever; no chills; no weight loss; no change in bowel/bladder habits Prior Imaging:x ray; CT scan Munir Prince MD [address],[facility], [place], [address], [place] - [facility] 10/31/2018 14:31:39
== END 2024-08-01 09:05 | disposition home or self-care (01) ==
PROVIDERS: PCP Internal Medicine; Visit Provider Physician Assistant Surgical
DX: I83.11 Varicose veins of right lower extremity with inflammation (principal)
CPT/HCPCS: 99214

== ENCOUNTER → 2024-08-01 08:43 | Outpatient (BNVA) | payer MEDICARE, SELFPAY | PROVIDERS: PCP Internal Medicine; Visit Provider Physician Assistant Surgical | DX: I83.11 Varicose veins of right lower extremity with inflammation (principal) | CPT/HCPCS: 99212 ==